=== PATIENT | male | born 1950 | race Caucasian/White ===

== ENCOUNTER 2022-12-17 13:54 | Inpatient (IN) ==
[2022-12-17] MEDS ORDERED: Pantoprazole 80 mg in NS BAG 80 MG/250 ML BAG IV ONE (14:05)
[2022-12-17] MEDS ORDERED: Pantoprazole VIAL 40 MG VIAL IV ONE (14:05)
[2022-12-17 14:28] LABS: INR 1.19 (0.88-1.18)
[2022-12-17 14:49] LABS: Hematocrit 33 % (42-52); Hemoglobin 11.1 g/dL (14.0-18.0); Mean Corpuscular HGB Conc 33 g/dL (31-36); Mean Corpuscular Hemoglobin 32 pg (27-31); Mean Corpuscular Volume 95 fL (80-94); Mean Platelet Volume 11.4 fL (7.4-10.4); Platelet Count 46 10^3/uL (150-450); Red Blood Count 3.51 10^6 /uL (4.18-5.48); Red Cell Distribution Width 15 % (10-15); White Blood Count 10.9 10^3/uL (3.5-10.8)
[2022-12-17] MEDS ORDERED: Lactated Ringers 1000 ml BAG 1,000 ML IV ONE ×2 (14:51→15:45)
[2022-12-17 15:15] LABS: Albumin 2.9 g/dL (3.2-5.2); Albumin/Globulin Ratio 1.3 (1-3); C Reactive Protein 321.91 mg/L (<8.01); Calcium 8.2 mg/dL (8.6-10.3); Creatinine, Serum 2.05 mg/dL (0.67-1.17); Globulin 2.3 g/dL (2-4); Potassium 3.3 mmol/L (3.5-5.0); Total Protein 5.2 g/dL (6.4-8.9); eGFR CKD-EPI 33.6 (>60)
[2022-12-17 15:40] LABS: RBC Morphology Normal (Normal)
[2022-12-17 15:41] LABS: ABS Lymphocytes 0.4 10^3/ul (1.0-4.8); ABS Monocytes 0.4 10^3/ul (0-0.8); Eosinophil % 0.4 %
[2022-12-17] MEDS ORDERED: Iodixanol (CONTRAST) 320 MG/ML 100 ML SDV IV ONE (16:00)
[2022-12-17] MEDS ORDERED: Lactated Ringers 1000 ml BAG 1,000 ML IV SCH ×2 (20:00→21:14)
[2022-12-17] MEDS ORDERED: DULoxetine DR 60 mg CAP PO ONE (21:04)
[2022-12-17] MEDS: KCL 20 MEQ/100 ML IVPREMIX 20 MEQ/100 ML BAG IV SCH (22:34)
[2022-12-17 23:02] LABS: Hematocrit 30 % (42-52); Hemoglobin 9.9 g/dL (14.0-18.0); Mean Corpuscular HGB Conc 33 g/dL (31-36); Mean Corpuscular Hemoglobin 31 pg (27-31); Mean Corpuscular Volume 92 fL (80-94); Mean Platelet Volume 10.9 fL (7.4-10.4); Platelet Count 47 10^3/uL (150-450); Red Blood Count 3.22 10^6 /uL (4.18-5.48); Red Cell Distribution Width 14 % (10-15); White Blood Count 9.2 10^3/uL (3.5-10.8)
[2022-12-17 23:38] LABS: Hepatitis B Surface Antigen Nonreactive (Nonreactive)
[2022-12-17 23:40] LABS: Activated Partial Thrombo Time 25.2 seconds (26.0-38.0)
[2022-12-17 23:43] LABS: Hepatitis A Ab IgM Negative (Negative)
[2022-12-17 23:44] LABS: Hepatitis B Core IgM Nonreactive (Nonreactive)
[2022-12-17 23:55] LABS: Hepatitis B Surface Ab Not Immune (Immune)
[2022-12-18 00:08] LABS: ABS Eosinophils 0.3 10^3/ul (0-0.6); ABS Lymphocytes 0.4 10^3/ul (1.0-4.8); ABS Monocytes 0.1 10^3/ul (0-0.8); ABS Neutrophils 8.3 10^3/ul (1.5-7.7); Eosinophil % 3.3 %; Lymphocyte % 4.3 %; Nucleated Red Blood Cells % 0.1
[2022-12-18] MEDS: KCL 20 MEQ/100 ML IVPREMIX 20 MEQ/100 ML BAG IV SCH ×4 (03:17→10:18)
[2022-12-18 03:38] LABS: Mean Platelet Volume 10.7 fL (7.4-10.4); Platelet Count 57 10^3/uL (150-450)
[2022-12-18 06:40] LABS: Hematocrit 30 % (42-52); Hemoglobin 10.3 g/dL (14.0-18.0); Mean Corpuscular HGB Conc 34 g/dL (31-36); Mean Corpuscular Hemoglobin 32 pg (27-31); Mean Corpuscular Volume 93 fL (80-94); Mean Platelet Volume 10.6 fL (7.4-10.4); Platelet Count 50 10^3/uL (150-450); Red Blood Count 3.23 10^6 /uL (4.18-5.48); Red Cell Distribution Width 15 % (10-15); White Blood Count 11.9 10^3/uL (3.5-10.8)
[2022-12-18 07:05] LABS: Albumin/Globulin Ratio 1.1 (1-3); Calcium 6.8 mg/dL (8.6-10.3); Creatinine, Serum 1.5 mg/dL (0.67-1.17); Globulin 1.9 g/dL (2-4); Potassium 3.4 mmol/L (3.5-5.0); Total Bilirubin 0.8 mg/dL (0.2-1.0); Total Protein 3.9 g/dL (6.4-8.9); eGFR CKD-EPI 48.9 (>60)
[2022-12-18 08:02] LABS: Hepatitis C Antibody Negative (Negative)
[2022-12-18] MEDS ORDERED: NS 0.9% 500 ml BAG 500 ML IV ONE (08:45)
[2022-12-18] MEDS ORDERED: Pantoprazole VIAL 40 MG VIAL IV SCH (09:00)
[2022-12-18] MEDS ORDERED: Lactated Ringers 1000 ml BAG 1,000 ML IV ONE (09:18)
[2022-12-18] MEDS: Pantoprazole 80 mg in NS BAG 80 MG/250 ML BAG IV SCH ×3 (10:27→22:10)
[2022-12-18] MEDS ORDERED: Buffered Lidocaine 1% SYRIN 1 ml INTRADERM ONE (14:14)
[2022-12-18] MEDS ORDERED: Naloxone 0.4 mg VIAL 0.4 mg/ml 1 ml VIAL IV PRN ×2 (15:05→18:34)
[2022-12-18] MEDS ORDERED: fentaNYL 100 mcg/2 ml 50 MCG/ML VIAL IV PRN (15:05)
[2022-12-18] MEDS ORDERED: Propofol 10 MG/ML 20 ML BTL ONE (15:16)
[2022-12-18 18:21] LABS: Hematocrit 35 % (42-52); Hemoglobin 11.5 g/dL (14.0-18.0)
[2022-12-18] MEDS: Lactated Ringers 1000 ml BAG 1,000 ML IV SCH (19:56)
[2022-12-18] MEDS ORDERED: cefTRIAXone 2 gm/50 mL D5W 2 GM/50 ML BAG IV SCH (21:00)
[2022-12-18] MEDS ORDERED: Metoprolol Tartrate 5 mg VIAL 5 ml VIAL (1 mg/ml) IV ONE (21:57)
[2022-12-18 23:51] LABS: Hematocrit 34 % (42-52); Hemoglobin 10.9 g/dL (14.0-18.0)
[2022-12-19] MEDS ORDERED: NS 0.9% 500 ml BAG 500 ML IV ONE (03:21)
[2022-12-19] MEDS: Lactated Ringers 1000 ml BAG 1,000 ML IV SCH (04:47)
[2022-12-19 06:52] LABS: Calcium 7.4 mg/dL (8.6-10.3); Creatinine, Serum 2.1 mg/dL (0.67-1.17); Magnesium 2.4 mg/dL (1.9-2.7); Potassium 4.6 mmol/L (3.5-5.0); eGFR CKD-EPI 32.6 (>60)
[2022-12-19 07:01] LABS: Hematocrit 31 % (42-52); Hemoglobin 10.7 g/dL (14.0-18.0); Mean Corpuscular HGB Conc 35 g/dL (31-36); Mean Corpuscular Hemoglobin 33 pg (27-31); Mean Corpuscular Volume 94 fL (80-94); Mean Platelet Volume 11.9 fL (7.4-10.4); Platelet Count 26 10^3/uL (150-450); Red Blood Count 3.28 10^6 /uL (4.18-5.48); Red Cell Distribution Width 15 % (10-15); White Blood Count 15.8 10^3/uL (3.5-10.8)
[2022-12-19] MEDS ORDERED: Lactated Ringers 1000 ml BAG 1,000 ML IV ONE ×2 (08:01→12:26)
[2022-12-19] MEDS ORDERED: Vancomycin per Pharmacy 1 EA NOTE FOLLOW UP PRN (08:52)
[2022-12-19] MEDS ORDERED: Cefepime 1 GM in Dextrose 1 GM/50 ML BAG IV SCH (09:00)
[2022-12-19] MEDS ORDERED: Iodixanol (CONTRAST) 320 MG/ML 100 ML SDV IV ONE (09:01)
[2022-12-19] MEDS ORDERED: metroNIDAZOLE IV 500 MG/100ML 500 MG/100 ML BAG IVPB SCH (09:30)
[2022-12-19] MEDS ORDERED: Albuterol/Ipratropium NEB.SOL (2.5/0.5 MG) 3 ML NEB.SOLN INH SCH (10:00)
[2022-12-19] MEDS ORDERED: Norepinephrine 16MCG/ML BAGD5W 4,000 MCG/250 ML BAG IV SCH (10:00)
[2022-12-19] MEDS ORDERED: PHENYLEPHRINE DRIP IVPREMIX 50 MG/250 ML BAG IV SCH (10:00)
[2022-12-19 10:07] LABS: Toxic Granulation 2+
[2022-12-19 10:08] LABS: RBC Morphology Normal (Normal)
[2022-12-19] MEDS: Pantoprazole 80 mg in NS BAG 80 MG/250 ML BAG IV SCH ×2 (10:11→16:44)
[2022-12-19 10:14] LABS: Platelet Morphology Large
[2022-12-19 10:16] LABS: ABS Eosinophils 0.1 10^3/ul (0-0.6); ABS Lymphocytes 0.4 10^3/ul (1.0-4.8); ABS Monocytes 0.2 10^3/ul (0-0.8); ABS Neutrophils 15.1 10^3/ul (1.5-7.7); Eosinophil % 0.7 %; Lymphocyte % 2.2 %; Nucleated Red Blood Cells % 0.2
[2022-12-19] MEDS ORDERED: Vancomycin 1,000 MG in NS 0.9% 250 ml 250 ML IVPB ONE (10:30)
[2022-12-19 10:32] LABS: INR 1.63 (0.88-1.18)
[2022-12-19] MEDS: Norepinephrine 16MCG/ML BAGD5W 4,000 MCG/250 ML BAG IV SCH ×2 (10:51→16:59)
[2022-12-19 12:22] LABS: Urine Appearance Cloudy; Urine Bilirubin Negative (Negative); Urine Blood 2+ (Negative); Urine Color Amber; Urine Glucose Negative (Negative); Urine Ketones Negative (Negative); Urine Nitrite Negative (Negative); Urine Protein Negative (Negative); Urine Specific Gravity 1.015 (1.002-1.030); Urine Urobilinogen Negative (Negative)
[2022-12-19] MEDS ORDERED: Morphine ORAL.SOLN 10 mg 2 mg/ml UDC 5 ml (10 mg) PO PRN (12:28)
[2022-12-19 12:46] LABS: Urine Bacteria Absent (Absent); Urine Red Blood Cell 1+(3-5/hpf) (Absent); Urine White Blood Cell 1+(6-10/hpf) (Absent)
[2022-12-19] MEDS ORDERED: Albuterol/Ipratropium NEB.SOL (2.5/0.5 MG) 3 ML NEB.SOLN INH PRN (13:16)
[2022-12-19 13:18] LABS: PCO2 Arterial 26 mmHg (35-45)
[2022-12-19 13:35] LABS: Hematocrit 28 % (42-52); Hemoglobin 9.3 g/dL (14.0-18.0); Mean Corpuscular HGB Conc 33 g/dL (31-36); Mean Corpuscular Hemoglobin 31 pg (27-31); Mean Corpuscular Volume 93 fL (80-94); Mean Platelet Volume 11.1 fL (7.4-10.4); Mean Platelet Volume 11.7 fL (7.4-10.4); Platelet Count 35 10^3/uL (150-450); Platelet Count 37 10^3/uL (150-450); Red Blood Count 3.01 10^6 /uL (4.18-5.48); Red Cell Distribution Width 15 % (10-15); White Blood Count 20.3 10^3/uL (3.5-10.8)
[2022-12-19 14:00] LABS: High Sensitivity Troponin 1 Hr 783 pg/mL (<20)
[2022-12-19] MEDS ORDERED: Heparin DRIP 25,000 UNITS BAG 25,000 UNITS/500 ML BAG IV SCH (14:00)
[2022-12-19 14:31] LABS: Creatinine, Serum 2.13 mg/dL (0.67-1.17); Potassium 4.1 mmol/L (3.5-5.0)
[2022-12-19 14:32] LABS: Calcium 7.2 mg/dL (8.6-10.3); eGFR CKD-EPI 32.1 (>60)
[2022-12-19] MEDS ORDERED: Heparin 5000 UNITS/ML 1 mL VIAL IV SCH (15:00)
[2022-12-19 18:30] LABS: Body Fluid Appearance Cloudy; Body Fluid Color Yellow; Body Fluid Source Synovial Fluid
[2022-12-19 19:33] LABS: Body Fluid WBC 209274 /mcL
[2022-12-19] MEDS ORDERED: Lidocaine 1% w EPI 1:200,000 SDV 30 ML VIAL ONE (20:25)
[2022-12-19] MEDS ORDERED: Midazolam 5 mg/5 ml VIAL 1 mg/ml 5 ml VIAL (5 mg) ONE (20:50)
[2022-12-19] MEDS ORDERED: fentaNYL 100 mcg/2 ml 50 MCG/ML VIAL ONE (20:50)
[2022-12-19 21:45] LABS: Body Fluid Mono 14 %; Body Fluid Other Cells 14; Body Fluid Total Cells Counted 200
[2022-12-19 22:57] LABS: PCO2 Arterial 26 mmHg (35-45); PO2 Arterial 77 mmHg (80-100)
[2022-12-19 23:13] LABS: ABS Lymphocytes 0.6 10^3/ul (1.0-4.8); ABS Monocytes 0.2 10^3/ul (0-0.8); Eosinophil % 0.2 %; Hematocrit 25 % (42-52); Hemoglobin 8.1 g/dL (14.0-18.0); Lymphocyte % 4.2 %; Mean Corpuscular HGB Conc 33 g/dL (31-36); Mean Corpuscular Hemoglobin 30 pg (27-31); Mean Corpuscular Volume 93 fL (80-94); Mean Platelet Volume 11.5 fL (7.4-10.4); Nucleated Red Blood Cells % 0.1; Platelet Count 31 10^3/uL (150-450); Red Blood Count 2.66 10^6 /uL (4.18-5.48); Red Cell Distribution Width 15 % (10-15); White Blood Count 14.9 10^3/uL (3.5-10.8)
[2022-12-19 23:53] LABS: Calcium 6.8 mg/dL (8.6-10.3); Creatinine, Serum 1.99 mg/dL (0.67-1.17); Potassium 4.1 mmol/L (3.5-5.0); eGFR CKD-EPI 34.8 (>60)
[2022-12-19] MEDS: ceFAZolin 2 GM in NS PREMIX 2 GM/100 ML BAG IVPB SCH (23:54)
[2022-12-20] MEDS: Pantoprazole 80 mg in NS BAG 80 MG/250 ML BAG IV SCH ×2 (01:16→12:56)
[2022-12-20] MEDS: Norepinephrine 16MCG/ML BAGD5W 4,000 MCG/250 ML BAG IV SCH ×2 (01:23→09:51)
[2022-12-20 03:16] LABS: Urine Appearance Cloudy; Urine Bilirubin Negative (Negative); Urine Blood 1+ (Negative); Urine Color Yellow; Urine Glucose Negative (Negative); Urine Ketones Negative (Negative); Urine Nitrite Negative (Negative); Urine Protein Negative (Negative); Urine Urobilinogen Negative (Negative)
[2022-12-20 03:29] LABS: Urine Bacteria Absent (Absent); Urine Granular Casts Present (Absent); Urine Red Blood Cell 2+(6-10/hpf) (Absent); Urine Squamous Epithelial Cell Present (Absent); Urine White Blood Cell Trace(0-5/hpf) (Absent)
[2022-12-20 06:28] LABS: Hematocrit 23 % (42-52); Hemoglobin 7.6 g/dL (14.0-18.0); Mean Corpuscular HGB Conc 33 g/dL (31-36); Mean Corpuscular Hemoglobin 30 pg (27-31); Mean Corpuscular Volume 93 fL (80-94); Mean Platelet Volume 11.8 fL (7.4-10.4); Platelet Count 35 10^3/uL (150-450); Red Blood Count 2.52 10^6 /uL (4.18-5.48); Red Cell Distribution Width 15 % (10-15); White Blood Count 16.5 10^3/uL (3.5-10.8)
[2022-12-20 07:06] LABS: Albumin 1.7 g/dL (3.2-5.2); Magnesium 2.4 mg/dL (1.9-2.7)
[2022-12-20 07:09] LABS: Calcium 6.9 mg/dL (8.6-10.3); Potassium 4.2 mmol/L (3.5-5.0)
[2022-12-20 07:12] LABS: Albumin/Globulin Ratio 0.9 (1-3); Creatinine, Serum 2.22 mg/dL (0.67-1.17); Globulin 1.9 g/dL (2-4); Total Protein 3.6 g/dL (6.4-8.9); eGFR CKD-EPI 30.5 (>60)
[2022-12-20 08:11] LABS: INR 1.83 (0.88-1.18)
[2022-12-20] MEDS: DULoxetine DR 60 mg CAP PO SCH (09:13)
[2022-12-20 11:54] LABS: PCO2 Arterial 23 mmHg (35-45); PO2 Arterial 119 mmHg (80-100)
[2022-12-20] MEDS: ceFAZolin 2 GM in NS PREMIX 2 GM/100 ML BAG IVPB SCH ×2 (12:00→23:13)
[2022-12-20] MEDS ORDERED: Morphine 10 MG/ML VIAL (1 ml) IV PRN (12:06)
[2022-12-20] MEDS: Acetaminophen IV 1 GM/100ML 1,000 MG/100 ML BAG IV PRN (12:43)
[2022-12-20] MEDS: PHENYLEPHRINE IV SCH ×2 (12:59→22:13)
[2022-12-20] MEDS: NS 0.9% IV SCH ×2 (12:59→22:13)
[2022-12-20] MEDS ORDERED: PHENYLEPHRINE DRIP IVPREMIX 50 MG/250 ML BAG IV SCH ×2 (13:00→15:00)
[2022-12-20 14:39] LABS: INR 2.05 (0.88-1.18)
[2022-12-20 14:54] LABS: Creatinine, Serum 2.42 mg/dL (0.67-1.17); Potassium 4.2 mmol/L (3.5-5.0); eGFR CKD-EPI 27.5 (>60)
[2022-12-20 14:56] LABS: Hematocrit 24 % (42-52); Hemoglobin 7.8 g/dL (14.0-18.0); Mean Corpuscular HGB Conc 32 g/dL (31-36); Mean Corpuscular Hemoglobin 29 pg (27-31); Mean Corpuscular Volume 91 fL (80-94); Mean Platelet Volume 10.1 fL (7.4-10.4); Platelet Count 34 10^3/uL (150-450); Red Blood Count 2.66 10^6 /uL (4.18-5.48); Red Cell Distribution Width 15 % (10-15)
[2022-12-20 15:03] LABS: Calcium 6.4 mg/dL (8.6-10.3)
[2022-12-20] MEDS: fentaNYL 100 mcg/2 ml 50 MCG/ML VIAL IV SLOW PU PRN (16:48)
[2022-12-20] MEDS ORDERED: Calcium Gluconate 2 GM in NS 0.9% 100 ml BAG 100 ML IV ONE (19:30)
[2022-12-20 23:16] LABS: Hematocrit 23 % (42-52); Hemoglobin 7.4 g/dL (14.0-18.0); Mean Corpuscular HGB Conc 33 g/dL (31-36); Mean Corpuscular Hemoglobin 30 pg (27-31); Mean Corpuscular Volume 92 fL (80-94); Mean Platelet Volume 11.6 fL (7.4-10.4); Platelet Count 38 10^3/uL (150-450); Red Blood Count 2.47 10^6 /uL (4.18-5.48); Red Cell Distribution Width 15 % (10-15)
[2022-12-20 23:21] LABS: INR 1.78 (0.88-1.18)
[2022-12-21] MEDS: fentaNYL 100 mcg/2 ml 50 MCG/ML VIAL IV SLOW PU PRN (00:04)
[2022-12-21] MEDS: Acetaminophen IV 1 GM/100ML 1,000 MG/100 ML BAG IV PRN ×2 (01:03→12:24)
[2022-12-21] MEDS: Pantoprazole 80 mg in NS BAG 80 MG/250 ML BAG IV SCH ×3 (01:33→23:27)
[2022-12-21] MEDS ORDERED: Rocuronium 50 mg VIAL 10 mg/ml 5 ml VIAL (50 mg) ONE ×3 (03:12→03:35)
[2022-12-21] MEDS ORDERED: Succinylcholine 200 mg VIAL 20 mg/ml 10 ml VIAL (200 mg) ONE (03:12)
[2022-12-21] MEDS ORDERED: Propofol 10 mg/ml 100 ML BTL 1,000 MG/100 ML BTL ONE (03:23)
[2022-12-21] MEDS ORDERED: Etomidate 40 mg/20 ml (2 MG/ML) 20 ml VIAL (40 mg) ONE (03:35)
[2022-12-21] MEDS: Propofol 10 mg/ml 100 ML BTL 1,000 MG/100 ML BTL IV SCH ×3 (04:00→19:00)
[2022-12-21 04:30] LABS: PCO2 Arterial 43 mmHg (35-45); PO2 Arterial 83 mmHg (80-100)
[2022-12-21] MEDS: Chlorhexidine MOUTHWASH 0.12% 15 ML UDC SWISH SPIT SCH ×5 (05:06→20:06)
[2022-12-21 06:08] LABS: PCO2 Arterial 43 mmHg (35-45); PO2 Arterial 71 mmHg (80-100)
[2022-12-21] MEDS: PHENYLEPHRINE IV SCH ×2 (06:23→14:27)
[2022-12-21] MEDS: NS 0.9% IV SCH ×2 (06:23→14:27)
[2022-12-21 06:39] LABS: Hematocrit 32 % (42-52); Hemoglobin 10.6 g/dL (14.0-18.0); Mean Corpuscular HGB Conc 33 g/dL (31-36); Mean Corpuscular Hemoglobin 30 pg (27-31); Mean Corpuscular Volume 92 fL (80-94); Mean Platelet Volume 10.7 fL (7.4-10.4); Platelet Count 57 10^3/uL (150-450); Red Cell Distribution Width 15 % (10-15); White Blood Count 20.5 10^3/uL (3.5-10.8)
[2022-12-21 06:41] LABS: INR 1.57 (0.88-1.18)
[2022-12-21 07:46] LABS: Burr Cells 2+
[2022-12-21 07:49] LABS: ABS Lymphocytes 4.1 10^3/ul (1.0-4.8); ABS Neutrophils 15.8 10^3/ul (1.5-7.7); Anisocytosis 1+
[2022-12-21 07:50] LABS: ABS Eosinophils 0.2 10^3/ul (0-0.6)
[2022-12-21 07:53] LABS: Albumin 1.8 g/dL (3.2-5.2); Calcium 7.1 mg/dL (8.6-10.3); Magnesium 2.8 mg/dL (1.9-2.7); Potassium 4.5 mmol/L (3.5-5.0); Total Bilirubin 1.4 mg/dL (0.2-1.0)
[2022-12-21 07:59] LABS: Albumin/Globulin Ratio 0.8 (1-3); Creatinine, Serum 2.79 mg/dL (0.67-1.17); Globulin 2.2 g/dL (2-4); eGFR CKD-EPI 23.2 (>60)
[2022-12-21] MEDS ORDERED: Lidocaine 2% JELLY 6 ML Topical TOPICAL ONE (08:43)
[2022-12-21] MEDS ORDERED: Naloxone 0.4 mg VIAL 0.4 mg/ml 1 ml VIAL IV PUSH PRN (08:43)
[2022-12-21] MEDS ORDERED: Midazolam 10 mg/10 ml VIAL 1 mg/ml 10 ml VIAL (10 mg) IV SLOW PU ONE (08:43)
[2022-12-21] MEDS ORDERED: Flumazenil 0.5 mg/5 ml 0.1 MG/ML 5 ml VIAL IV PRN (08:43)
[2022-12-21] MEDS ORDERED: Lactated Ringers 1000 ml BAG 1,000 ML IV ONE (08:43)
[2022-12-21] MEDS ORDERED: Ondansetron 4 mg VIAL 2 MG/ML 2 ml VIAL IV ONE (08:43)
[2022-12-21] MEDS ORDERED: fentaNYL 100 mcg/2 ml 50 MCG/ML VIAL IV SLOW PU ONE (08:43)
[2022-12-21] MEDS: DULoxetine DR 60 mg CAP PO SCH (08:54)
[2022-12-21] MEDS ORDERED: Midazolam 10 mg/10 ml VIAL 1 mg/ml 10 ml VIAL (10 mg) ONE (09:57)
[2022-12-21] MEDS ORDERED: fentaNYL 100 mcg/2 ml 50 MCG/ML VIAL ONE (09:57)
[2022-12-21] MEDS ORDERED: D5W 1000 ml BAG 1,000 ML IV SCH ×2 (10:00→14:26)
[2022-12-21 10:05] LABS: C Reactive Protein 346.7 mg/L (<8.01)
[2022-12-21] MEDS ORDERED: Sulfur Hexaflouride MICROSPHR 25 MG VIAL ONE (10:24)
[2022-12-21 11:51] LABS: Hematocrit 31 % (42-52); Hemoglobin 10.1 g/dL (14.0-18.0); Mean Corpuscular HGB Conc 33 g/dL (31-36); Mean Corpuscular Hemoglobin 29 pg (27-31); Mean Corpuscular Volume 90 fL (80-94); Platelet Count 41 10^3/uL (150-450); Red Blood Count 3.46 10^6 /uL (4.18-5.48); Red Cell Distribution Width 16 % (10-15); White Blood Count 17.1 10^3/uL (3.5-10.8)
[2022-12-21] MEDS: ceFAZolin 2 GM in NS PREMIX 2 GM/100 ML BAG IVPB SCH (12:24)
[2022-12-21 12:30] LABS: Albumin 1.8 g/dL (3.2-5.2); Albumin/Globulin Ratio 0.9 (1-3); Creatinine, Serum 2.87 mg/dL (0.67-1.17); Potassium 4.5 mmol/L (3.5-5.0); Total Bilirubin 1.1 mg/dL (0.2-1.0); Total Protein 3.8 g/dL (6.4-8.9); eGFR CKD-EPI 22.4 (>60)
[2022-12-21 12:53] LABS: ABS Lymphocytes 1.9 10^3/ul (1.0-4.8); ABS Monocytes 0.6 10^3/ul (0-0.8); ABS Neutrophils 14.7 10^3/ul (1.5-7.7); Eosinophil % 0.1 %; Nucleated Red Blood Cells % 0.1
[2022-12-21 12:56] LABS: Anisocytosis 1+
[2022-12-21 12:57] LABS: Burr Cells 2+
[2022-12-21 17:52] LABS: Hematocrit 28 % (42-52); Hemoglobin 9.8 g/dL (14.0-18.0); Mean Corpuscular HGB Conc 35 g/dL (31-36); Mean Corpuscular Hemoglobin 32 pg (27-31); Mean Corpuscular Volume 91 fL (80-94); Mean Platelet Volume 11.1 fL (7.4-10.4); Platelet Count 37 10^3/uL (150-450); Red Blood Count 3.09 10^6 /uL (4.18-5.48); Red Cell Distribution Width 16 % (10-15); White Blood Count 12.4 10^3/uL (3.5-10.8)
[2022-12-21 18:21] LABS: Calcium 6.7 mg/dL (8.6-10.3); Creatinine, Serum 2.64 mg/dL (0.67-1.17); Potassium 3.9 mmol/L (3.5-5.0); eGFR CKD-EPI 24.8 (>60)
[2022-12-21 18:54] LABS: Anisocytosis 1+; Burr Cells 2+; Toxic Granulation 1+
[2022-12-21 18:55] LABS: Acanthocytes 2+
[2022-12-21 18:58] LABS: Smudge Cells Present
[2022-12-21] MEDS: D5W 1000 ml BAG 1,000 ML IV SCH (19:31)
[2022-12-21 20:02] LABS: ABS Eosinophils 0.1 10^3/ul (0-0.6); ABS Lymphocytes 1.5 10^3/ul (1.0-4.8); ABS Monocytes 0.1 10^3/ul (0-0.8); ABS Neutrophils 10.7 10^3/ul (1.5-7.7); Eosinophil % 0.5 %; Lymphocyte % 12.4 %; Nucleated Red Blood Cells % 0.1
[2022-12-22] MEDS: PHENYLEPHRINE IV SCH (00:15)
[2022-12-22] MEDS: NS 0.9% IV SCH (00:15)
[2022-12-22 00:56] LABS: Hematocrit 32 % (42-52); Hemoglobin 10.6 g/dL (14.0-18.0); Mean Corpuscular HGB Conc 33 g/dL (31-36); Mean Corpuscular Hemoglobin 30 pg (27-31); Mean Corpuscular Volume 91 fL (80-94); Platelet Count 38 10^3/uL (150-450); Red Blood Count 3.49 10^6 /uL (4.18-5.48); Red Cell Distribution Width 16 % (10-15)
[2022-12-22] MEDS: Propofol 10 mg/ml 100 ML BTL 1,000 MG/100 ML BTL IV SCH ×4 (01:19→17:33)
[2022-12-22] MEDS: ceFAZolin 2 GM in NS PREMIX 2 GM/100 ML BAG IVPB SCH ×3 (01:21→21:39)
[2022-12-22] MEDS: Chlorhexidine MOUTHWASH 0.12% 15 ML UDC SWISH SPIT SCH ×6 (01:23→21:13)
[2022-12-22 01:27] LABS: Blood Urea Nitrogen 125 mg/dL (6-24); CO2 Carbon Dioxide 20 mmol/L (22-32); Calcium 6.7 mg/dL (8.6-10.3); Creatinine, Serum 2.57 mg/dL (0.67-1.17); Glucose 145 mg/dL (70-100); Sodium 143 mmol/L (135-145); eGFR CKD-EPI 25.6 (>60)
[2022-12-22 01:38] LABS: Anion Gap 7 mmol/L (2-11); Chloride 116 mmol/L (101-111)
[2022-12-22 02:11] LABS: Burr Cells 3+
[2022-12-22 02:12] LABS: Anisocytosis 2+
[2022-12-22 02:13] LABS: Acanthocytes 1+; Toxic Granulation 3+
[2022-12-22 02:15] LABS: Smudge Cells Present
[2022-12-22 02:20] LABS: White Blood Count 14.2 10^3/uL (3.5-10.8)
[2022-12-22 02:21] LABS: ABS Eosinophils 0.2 10^3/ul (0-0.6); ABS Lymphocytes 2.1 10^3/ul (1.0-4.8); ABS Monocytes 0.3 10^3/ul (0-0.8); ABS Neutrophils 13.2 10^3/ul (1.5-7.7); ABS Nucleated RBC 0.1 10^3/ul; Lymphocyte % 13.4 %; Nucleated Red Blood Cells % 0.4
[2022-12-22 04:34] LABS: Hematocrit 31 % (42-52); Hemoglobin 10.1 g/dL (14.0-18.0); Mean Corpuscular HGB Conc 32 g/dL (31-36); Mean Corpuscular Hemoglobin 30 pg (27-31); Mean Corpuscular Volume 92 fL (80-94); Mean Platelet Volume 10.7 fL (7.4-10.4); Platelet Count 36 10^3/uL (150-450); Red Cell Distribution Width 16 % (10-15)
[2022-12-22] MEDS: D5W 1000 ml BAG 1,000 ML IV SCH ×2 (04:58→21:03)
[2022-12-22 05:06] LABS: INR 1.47 (0.88-1.18)
[2022-12-22 05:10] LABS: Albumin 1.8 g/dL (3.2-5.2); Albumin/Globulin Ratio 0.9 (1-3); Calcium 6.9 mg/dL (8.6-10.3); Creatinine, Serum 2.78 mg/dL (0.67-1.17); Potassium 4.8 mmol/L (3.5-5.0); Total Bilirubin 0.6 mg/dL (0.2-1.0); Total Protein 3.8 g/dL (6.4-8.9); eGFR CKD-EPI 23.3 (>60)
[2022-12-22 06:50] LABS: Acanthocytes 1+; Anisocytosis 1+; Burr Cells 3+; Toxic Granulation 3+
[2022-12-22 06:51] LABS: ABS Eosinophils 0.1 10^3/ul (0-0.6); ABS Lymphocytes 1.6 10^3/ul (1.0-4.8); ABS Monocytes 0.2 10^3/ul (0-0.8); ABS Neutrophils 13.8 10^3/ul (1.5-7.7); Eosinophil % 0.5 %; Lymphocyte % 10.1 %; Nucleated Red Blood Cells % 0.2; White Blood Count 15.6 10^3/uL (3.5-10.8)
[2022-12-22 06:52] LABS: Smudge Cells Present
[2022-12-22] MEDS: DULoxetine DR 60 mg CAP PO SCH (08:44)
[2022-12-22 09:50] LABS: PCO2 Arterial 36 mmHg (35-45); PO2 Arterial 102 mmHg (80-100)
[2022-12-22] MEDS: Pantoprazole 80 mg in NS BAG 80 MG/250 ML BAG IV SCH ×3 (10:15→21:53)
[2022-12-22] MEDS ORDERED: Vancomycin 1,000 MG in NS 0.9% 250 ml 250 ML IVPB ONE (12:14)
[2022-12-22 12:37] LABS: Hematocrit 28 % (42-52); Hemoglobin 9.6 g/dL (14.0-18.0); Mean Corpuscular HGB Conc 34 g/dL (31-36); Mean Corpuscular Hemoglobin 31 pg (27-31); Mean Corpuscular Volume 91 fL (80-94); Red Blood Count 3.11 10^6 /uL (4.18-5.48); Red Cell Distribution Width 16 % (10-15); White Blood Count 14.5 10^3/uL (3.5-10.8)
[2022-12-22 12:54] LABS: Body Fluid WBC 13099 /mcL
[2022-12-22] MEDS ORDERED: Vancomycin per Pharmacy 1 EA NOTE FOLLOW UP PRN (13:01)
[2022-12-22 13:43] LABS: Body Fluid Mono 2 %; Body Fluid Total Cells Counted 200
[2022-12-22 13:44] LABS: Body Fluid Appearance Cloudy; Body Fluid Color Colorless; Body Fluid Source Synovial Fluid
[2022-12-22 13:59] LABS: Anisocytosis 1+; Toxic Granulation 2+
[2022-12-22 14:01] LABS: ABS Eosinophils 0.1 10^3/ul (0-0.6); ABS Lymphocytes 1.3 10^3/ul (1.0-4.8); ABS Monocytes 0.2 10^3/ul (0-0.8); ABS Neutrophils 12.9 10^3/ul (1.5-7.7); Eosinophil % 0.5 %; Lymphocyte % 8.8 %; Mean Platelet Volume 11.7 fL (7.4-10.4); Nucleated Red Blood Cells % 0.3; Platelet Count 30 10^3/uL (150-450)
[2022-12-22] MEDS: Phenylephrine IV 50 MG in NS 0.9% 250 ml 245 ML IV SCH (14:07)
[2022-12-22] MEDS ORDERED: Propofol 10 MG/ML 20 ML BTL ONE (16:56)
[2022-12-22] MEDS: fentaNYL 100 mcg/2 ml 50 MCG/ML VIAL IV SLOW PU PRN (17:33)
[2022-12-22 19:06] LABS: Body Fluid Source Synovial Fluid
[2022-12-22 19:07] LABS: Body Fluid Appearance Cloudy; Body Fluid Color Red
[2022-12-22 19:50] LABS: Body Fluid WBC 589 /mcL
[2022-12-22 20:37] LABS: Body Fluid Mono 20 %; Body Fluid Total Cells Counted 200
[2022-12-22 20:40] LABS: Hematocrit 28 % (42-52); Hemoglobin 9.1 g/dL (14.0-18.0); Mean Corpuscular HGB Conc 32 g/dL (31-36); Mean Corpuscular Hemoglobin 30 pg (27-31); Mean Corpuscular Volume 92 fL (80-94); Mean Platelet Volume 10.2 fL (7.4-10.4); Platelet Count 29 10^3/uL (150-450); Red Blood Count 3.06 10^6 /uL (4.18-5.48); Red Cell Distribution Width 16 % (10-15); White Blood Count 17.2 10^3/uL (3.5-10.8)
[2022-12-23] MEDS: fentaNYL 100 mcg/2 ml 50 MCG/ML VIAL IV SLOW PU PRN (00:12)
[2022-12-23] MEDS: Phenylephrine IV 50 MG in NS 0.9% 250 ml 245 ML IV SCH ×7 (00:27→23:11)
[2022-12-23] MEDS: Pantoprazole 80 mg in NS BAG 80 MG/250 ML BAG IV SCH ×3 (01:11→18:12)
[2022-12-23] MEDS: fentaNYL INFUSION 50 mcg/mL VL 2,500 MCG/50 ML VIAL IV SCH (02:55)
[2022-12-23 03:06] LABS: Hematocrit 25 % (42-52); Hemoglobin 8.1 g/dL (14.0-18.0); Mean Corpuscular HGB Conc 33 g/dL (31-36); Mean Corpuscular Hemoglobin 30 pg (27-31); Mean Corpuscular Volume 92 fL (80-94); Mean Platelet Volume 12.4 fL (7.4-10.4); Platelet Count 38 10^3/uL (150-450); Red Blood Count 2.68 10^6 /uL (4.18-5.48); Red Cell Distribution Width 16 % (10-15); White Blood Count 18.5 10^3/uL (3.5-10.8)
[2022-12-23] MEDS: Chlorhexidine MOUTHWASH 0.12% 15 ML UDC SWISH SPIT SCH ×6 (03:07→21:43)
[2022-12-23 03:11] LABS: ALT 10 U/L (7-52); AST 89 U/L (13-39); Alkaline Phosphatase 174 U/L (35-149); Blood Urea Nitrogen 113 mg/dL (6-24); CO2 Carbon Dioxide 21 mmol/L (22-32); Creatinine, Serum 2.31 mg/dL (0.67-1.17); Glucose 120 mg/dL (70-100); Magnesium 2.7 mg/dL (1.9-2.7); Potassium 4.2 mmol/L (3.5-5.0); Total Protein 3.6 g/dL (6.4-8.9); Vancomycin Random 9.6 mcg/mL; eGFR CKD-EPI 29.1 (>60)
[2022-12-23 03:16] LABS: Albumin < 1.7 g/dL (3.2-5.2); Albumin/Globulin Ratio 0.9 (1-3); Anion Gap 7 mmol/L (2-11); Calcium 6.3 mg/dL (8.6-10.3); Chloride 118 mmol/L (101-111); Globulin 1.9 g/dL (2-4); Sodium 146 mmol/L (135-145)
[2022-12-23 03:31] LABS: Anisocytosis 1+; Toxic Granulation 2+
[2022-12-23 03:32] LABS: ABS Lymphocytes 1.5 10^3/ul (1.0-4.8); ABS Monocytes 0.4 10^3/ul (0-0.8); ABS Neutrophils 16.5 10^3/ul (1.5-7.7); ABS Nucleated RBC 0.1 10^3/ul; Burr Cells 1+; Eosinophil % 0.2 %; Lymphocyte % 8.3 %; Nucleated Red Blood Cells % 0.4; Polychromasia 1+
[2022-12-23] MEDS ORDERED: D5W 500 ml BAG 500 ML IV ONE (03:36)
[2022-12-23] MEDS ORDERED: Norepinephrine 16MCG/ML BAGD5W 4,000 MCG/250 ML BAG IV ONE (04:53)
[2022-12-23] MEDS: Norepinephrine 16MCG/ML BAGD5W 4,000 MCG/250 ML BAG IV SCH ×5 (05:00→21:38)
[2022-12-23] MEDS: Propofol 10 mg/ml 100 ML BTL 1,000 MG/100 ML BTL IV SCH ×3 (05:19→18:11)
[2022-12-23 05:24] LABS: PCO2 Arterial 37 mmHg (35-45); PO2 Arterial 122 mmHg (80-100)
[2022-12-23] MEDS ORDERED: Vancomycin Random Level NOTE FOLLOW UP ONE (06:00)
[2022-12-23 08:33] LABS: Hematocrit 24 % (42-52); Hemoglobin 7.9 g/dL (14.0-18.0); Mean Corpuscular HGB Conc 33 g/dL (31-36); Mean Corpuscular Hemoglobin 30 pg (27-31); Mean Corpuscular Volume 91 fL (80-94); Mean Platelet Volume 11.6 fL (7.4-10.4); Platelet Count 40 10^3/uL (150-450); Red Blood Count 2.63 10^6 /uL (4.18-5.48); Red Cell Distribution Width 16 % (10-15); White Blood Count 20.5 10^3/uL (3.5-10.8)
[2022-12-23 08:38] LABS: INR 1.34 (0.88-1.18)
[2022-12-23 08:57] LABS: Anisocytosis 1+; Toxic Granulation 2+
[2022-12-23] MEDS ORDERED: Vancomycin 1,250 MG IV x ONCE IVPB ONE (09:00)
[2022-12-23 09:17] LABS: ABS Eosinophils 0.1 10^3/ul (0-0.6); ABS Lymphocytes 1.8 10^3/ul (1.0-4.8); ABS Monocytes 0.5 10^3/ul (0-0.8); ABS Neutrophils 18.2 10^3/ul (1.5-7.7); ABS Nucleated RBC 0.1 10^3/ul; Eosinophil % 0.3 %; Lymphocyte % 8.7 %; Nucleated Red Blood Cells % 0.4
[2022-12-23] MEDS ORDERED: Calcium Gluconate 2 GM in NS 0.9% 100 ml BAG 100 ML IV ONE (09:30)
[2022-12-23] MEDS ORDERED: Lactated Ringers 1000 ml BAG 1,000 ML IV ONE (09:31)
[2022-12-23] MEDS: ceFAZolin 2 GM in NS PREMIX 2 GM/100 ML BAG IVPB SCH (10:04)
[2022-12-23] MEDS ORDERED: Albumin Human 25% 25 GM/100 ML IV ONE (11:15)
[2022-12-23] MEDS ORDERED: EPINEPHrine SYR 0.1MG/ML 10 ml SYRINGE IV ONE (12:35)
[2022-12-23] MEDS ORDERED: Sterile Water for Inj 10 ML ONE (12:36)
[2022-12-23] MEDS ORDERED: Sterile Water for Inj 20 ML ONE (12:38)
[2022-12-23] MEDS ORDERED: Propofol 10 MG/ML 20 ML BTL ONE (12:50)
[2022-12-23] MEDS: Albumin Human 25% 25 GM/100 ML BTL IV SCH ×5 (13:31→22:06)
[2022-12-23] MEDS ORDERED: ceFAZolin VIAL VIAL ONE (13:44)
[2022-12-23] MEDS ORDERED: Rocuronium 50 mg VIAL 10 mg/ml 5 ml VIAL (50 mg) ONE ×2 (14:04)
[2022-12-23] MEDS ORDERED: Sevoflurane BOTTLE ONE (14:05)
[2022-12-23] MEDS ORDERED: fentaNYL 100 mcg/2 ml 50 MCG/ML VIAL ONE (15:33)
[2022-12-23] MEDS ORDERED: Midazolam 2 mg/2 ml VIAL 1 mg/ml 2 ml VIAL (2 mg) ONE (15:40)
[2022-12-23] MEDS ORDERED: Phenylephrine IV 10 MG/ML 1 ml VIAL ONE (15:45)
[2022-12-23] MEDS ORDERED: Levalbuterol HFA INHALER MDI ONE (16:19)
[2022-12-23 18:47] LABS: Hematocrit 27 % (42-52); Hemoglobin 8.7 g/dL (14.0-18.0); Mean Corpuscular HGB Conc 33 g/dL (31-36); Mean Corpuscular Hemoglobin 30 pg (27-31); Mean Corpuscular Volume 91 fL (80-94); Mean Platelet Volume 10.3 fL (7.4-10.4); Platelet Count 51 10^3/uL (150-450); Red Blood Count 2.92 10^6 /uL (4.18-5.48); Red Cell Distribution Width 16 % (10-15)
[2022-12-23 18:48] LABS: Platelet Count 49 10^3/uL (150-450)
[2022-12-23 19:14] LABS: Calcium 6.9 mg/dL (8.6-10.3); eGFR CKD-EPI 34.6 (>60)
[2022-12-23 19:28] LABS: Anisocytosis 1+
[2022-12-23 19:29] LABS: Burr Cells 1+; Polychromasia 1+; Toxic Granulation 2+
[2022-12-23 19:30] LABS: ABS Eosinophils 0.1 10^3/ul (0-0.6); ABS Lymphocytes 1.2 10^3/ul (1.0-4.8); ABS Monocytes 0.1 10^3/ul (0-0.8); ABS Neutrophils 19.6 10^3/ul (1.5-7.7); ABS Nucleated RBC 0.1 10^3/ul; Dohle Bodies Present; Eosinophil % 0.3 %; Lymphocyte % 5.8 %; Nucleated Red Blood Cells % 0.3
[2022-12-23 21:38] LABS: PO2 Arterial 104 mmHg (80-100)
[2022-12-23 21:41] LABS: PCO2 Arterial 73 mmHg (35-45)
[2022-12-23 23:17] LABS: PCO2 Arterial 47 mmHg (35-45); PO2 Arterial 139 mmHg (80-100)
[2022-12-24] MEDS: Norepinephrine 16MCG/ML BAGD5W 4,000 MCG/250 ML BAG IV SCH ×5 (00:45→22:46)
[2022-12-24] MEDS: ceFAZolin 2 GM in NS PREMIX 2 GM/100 ML BAG IVPB SCH ×3 (01:08→22:14)
[2022-12-24] MEDS: Chlorhexidine MOUTHWASH 0.12% 15 ML UDC SWISH SPIT SCH ×6 (01:16→20:30)
[2022-12-24] MEDS: Propofol 10 mg/ml 100 ML BTL 1,000 MG/100 ML BTL IV SCH ×3 (01:51→19:16)
[2022-12-24] MEDS: Pantoprazole 80 mg in NS BAG 80 MG/250 ML BAG IV SCH (04:41)
[2022-12-24 04:52] LABS: Hematocrit 18 % (42-52); Mean Corpuscular HGB Conc 33 g/dL (31-36); Mean Corpuscular Hemoglobin 30 pg (27-31); Mean Corpuscular Volume 91 fL (80-94); Mean Platelet Volume 10.8 fL (7.4-10.4); Platelet Count 33 10^3/uL (150-450); Red Blood Count 2.01 10^6 /uL (4.18-5.48); Red Cell Distribution Width 16 % (10-15)
[2022-12-24 04:57] LABS: INR 1.47 (0.88-1.18)
[2022-12-24 05:20] LABS: Hematocrit 18 % (42-52); Hemoglobin 6.1 g/dL (14.0-18.0); Mean Corpuscular HGB Conc 33 g/dL (31-36); Mean Corpuscular Hemoglobin 31 pg (27-31); Mean Corpuscular Volume 92 fL (80-94); Mean Platelet Volume 11.2 fL (7.4-10.4); Platelet Count 35 10^3/uL (150-450); Red Blood Count 1.99 10^6 /uL (4.18-5.48); Red Cell Distribution Width 16 % (10-15); White Blood Count 10.2 10^3/uL (3.5-10.8)
[2022-12-24 05:21] LABS: ABS Lymphocytes 0.8 10^3/ul (1.0-4.8); ABS Monocytes 0.2 10^3/ul (0-0.8); ABS Neutrophils 9.2 10^3/ul (1.5-7.7); Eosinophil % 0.3 %; Lymphocyte % 7.7 %; Nucleated Red Blood Cells % 0.3
[2022-12-24] MEDS ORDERED: Vancomycin Random Level NOTE FOLLOW UP ONE (06:00)
[2022-12-24 06:02] LABS: AST 27 U/L (13-39); Albumin 2.8 g/dL (3.2-5.2); Albumin/Globulin Ratio 1.8 (1-3); Alkaline Phosphatase 146 U/L (35-149); Blood Urea Nitrogen 93 mg/dL (6-24); CO2 Carbon Dioxide 23 mmol/L (22-32); Calcium 7.1 mg/dL (8.6-10.3); Globulin 1.6 g/dL (2-4); Glucose 105 mg/dL (70-100); Total Protein 4.4 g/dL (6.4-8.9); eGFR CKD-EPI 34.6 (>60)
[2022-12-24 06:05] LABS: ALT < 3 U/L (7-52); Anion Gap 6 mmol/L (2-11); Chloride 117 mmol/L (101-111); Sodium 146 mmol/L (135-145)
[2022-12-24 08:01] LABS: Anisocytosis 1+; Basophilic Stippling 1+; Polychromasia 1+
[2022-12-24 08:02] LABS: ABS Lymphocytes 0.8 10^3/ul (1.0-4.8); ABS Monocytes 0.3 10^3/ul (0-0.8); ABS Neutrophils 10.9 10^3/ul (1.5-7.7); Eosinophil % 0.4 %; Lymphocyte % 6.7 %; Nucleated Red Blood Cells % 0.1
[2022-12-24] MEDS: Albumin Human 25% 25 GM/100 ML BTL IV SCH ×5 (08:10→21:16)
[2022-12-24 08:14] LABS: Vancomycin Random 12.7 mcg/mL
[2022-12-24] MEDS: Carboxymethylcellulos 1% OPTH 1 AMP BOTH EYES SCH (08:17)
[2022-12-24 09:40] LABS: ABS Monocytes 0.2 10^3/ul (0-0.8); Eosinophil % 0.2 %; Hematocrit 23 % (42-52); Hemoglobin 7.5 g/dL (14.0-18.0); Lymphocyte % 7.9 %; Mean Corpuscular HGB Conc 33 g/dL (31-36); Mean Corpuscular Hemoglobin 30 pg (27-31); Mean Corpuscular Volume 91 fL (80-94); Mean Platelet Volume 10.7 fL (7.4-10.4); Nucleated Red Blood Cells % 0.2; Platelet Count 31 10^3/uL (150-450); Red Blood Count 2.49 10^6 /uL (4.18-5.48); Red Cell Distribution Width 16 % (10-15); White Blood Count 12.2 10^3/uL (3.5-10.8)
[2022-12-24] MEDS ORDERED: Albumin Human 25% 25 GM/100 ML IV ONE (09:45)
[2022-12-24] MEDS: Pantoprazole VIAL 40 MG VIAL IV SCH ×2 (09:54→20:29)
[2022-12-24] MEDS ORDERED: Vancomycin 1,250 MG in NS 0.9% 250 ml 250 ML IVPB ONE (10:00)
[2022-12-24] MEDS ORDERED: Naloxone 0.4 mg VIAL 0.4 mg/ml 1 ml VIAL ONE (12:44)
[2022-12-24] MEDS ORDERED: fentaNYL 100 mcg/2 ml 50 MCG/ML VIAL ONE (12:44)
[2022-12-24] MEDS ORDERED: Midazolam 5 mg/5 ml VIAL 1 mg/ml 5 ml VIAL (5 mg) ONE (12:44)
[2022-12-24] MEDS ORDERED: Flumazenil 0.5 mg/5 ml 0.1 MG/ML 5 ml VIAL ONE (12:44)
[2022-12-24] MEDS ORDERED: Propofol 10 MG/ML 20 ML BTL ONE (13:13)
[2022-12-24] MEDS ORDERED: Propofol 10 MG/ML 20 ML BTL IV PUSH ONE (13:18)
[2022-12-24] MEDS: fentaNYL INFUSION 50 mcg/mL VL 2,500 MCG/50 ML VIAL IV SCH (13:30)
[2022-12-24 15:08] LABS: B. burgdorferi PCR Negative (Negative); B. garinii/B. afzellii PCR Negative (Negative); Lyme Disease Source SYNOVIAL FLUID
[2022-12-24 17:18] LABS: ABS Lymphocytes 0.7 10^3/ul (1.0-4.8); ABS Monocytes 0.2 10^3/ul (0-0.8); ABS Neutrophils 12.3 10^3/ul (1.5-7.7); ABS Nucleated RBC 0.2 10^3/ul; Eosinophil % 0.3 %; Hematocrit 20 % (42-52); Hemoglobin 6.8 g/dL (14.0-18.0); Lymphocyte % 5.4 %; Mean Corpuscular HGB Conc 34 g/dL (31-36); Mean Corpuscular Hemoglobin 30 pg (27-31); Mean Corpuscular Volume 89 fL (80-94); Mean Platelet Volume 9.5 fL (7.4-10.4); Nucleated Red Blood Cells % 1.6; Platelet Count 33 10^3/uL (150-450); Red Blood Count 2.28 10^6 /uL (4.18-5.48); Red Cell Distribution Width 16 % (10-15); White Blood Count 13.3 10^3/uL (3.5-10.8)
[2022-12-24] MEDS: Acetaminophen IV 1 GM/100ML 1,000 MG/100 ML BAG IV PRN (20:27)
[2022-12-24] MEDS: Erythromycin OPTH OINT APPLIC OINT LEFT EYE SCH (20:47)
[2022-12-24 23:09] LABS: Hematocrit 23 % (42-52); Hemoglobin 7.5 g/dL (14.0-18.0); Mean Corpuscular HGB Conc 33 g/dL (31-36); Mean Corpuscular Hemoglobin 30 pg (27-31); Mean Corpuscular Volume 89 fL (80-94); Mean Platelet Volume 10.2 fL (7.4-10.4); Platelet Count 32 10^3/uL (150-450); Red Blood Count 2.54 10^6 /uL (4.18-5.48); Red Cell Distribution Width 16 % (10-15); White Blood Count 11.3 10^3/uL (3.5-10.8)
[2022-12-25 01:00] LABS: ABS Lymphocytes 0.3 10^3/ul (1.0-4.8); ABS Monocytes 0.2 10^3/ul (0-0.8); ABS Neutrophils 10.7 10^3/ul (1.5-7.7); Eosinophil % 0.2 %; Lymphocyte % 3.1 %; Nucleated Red Blood Cells % 0.3
[2022-12-25] MEDS: Chlorhexidine MOUTHWASH 0.12% 15 ML UDC SWISH SPIT SCH ×6 (01:16→20:22)
[2022-12-25] MEDS: Norepinephrine 16MCG/ML BAGD5W 4,000 MCG/250 ML BAG IV SCH ×3 (01:47→18:41)
[2022-12-25] MEDS: Propofol 10 mg/ml 100 ML BTL 1,000 MG/100 ML BTL IV SCH ×3 (03:38→16:27)
[2022-12-25] MEDS ORDERED: Vancomycin Random Level NOTE FOLLOW UP ONE (06:00)
[2022-12-25 06:13] LABS: ALT < 3 U/L (7-52); AST 27 U/L (13-39); Albumin 3.3 g/dL (3.2-5.2); Albumin/Globulin Ratio 1.9 (1-3); Alkaline Phosphatase 313 U/L (35-149); Anion Gap 9 mmol/L (2-11); Blood Urea Nitrogen 81 mg/dL (6-24); CO2 Carbon Dioxide 21 mmol/L (22-32); Calcium 7.7 mg/dL (8.6-10.3); Chloride 119 mmol/L (101-111); Creatinine, Serum 1.95 mg/dL (0.67-1.17); Globulin 1.7 g/dL (2-4); Glucose 106 mg/dL (70-100); Potassium 3.5 mmol/L (3.5-5.0); Sodium 149 mmol/L (135-145); Vancomycin Random 16.4 mcg/mL; eGFR CKD-EPI 35.7 (>60)
[2022-12-25 07:09] LABS: INR 1.46 (0.88-1.18)
[2022-12-25 07:28] LABS: Hematocrit 25 % (42-52); Hemoglobin 8.3 g/dL (14.0-18.0); Mean Corpuscular HGB Conc 34 g/dL (31-36); Mean Corpuscular Hemoglobin 30 pg (27-31); Mean Corpuscular Volume 89 fL (80-94); Mean Platelet Volume 11.1 fL (7.4-10.4); Platelet Count 35 10^3/uL (150-450); Red Blood Count 2.79 10^6 /uL (4.18-5.48); Red Cell Distribution Width 16 % (10-15); White Blood Count 12.3 10^3/uL (3.5-10.8)
[2022-12-25 07:39] LABS: Acanthocytes 1+; Hypochromasia 2+; Microcytosis 1+; Polychromasia 2+
[2022-12-25 07:40] LABS: Anisocytosis 1+; Basophilic Stippling 1+; Stomatocytes 1+; Target Cells 2+; Toxic Granulation 2+
[2022-12-25 07:42] LABS: ABS Lymphocytes 0.4 10^3/ul (1.0-4.8); ABS Monocytes 0.2 10^3/ul (0-0.8); ABS Neutrophils 11.6 10^3/ul (1.5-7.7); Eosinophil % 0.1 %; Lymphocyte % 3.5 %; Nucleated Red Blood Cells % 0.4
[2022-12-25] MEDS: Carboxymethylcellulos 1% OPTH 1 AMP BOTH EYES SCH (08:44)
[2022-12-25] MEDS: Albumin Human 25% 25 GM/100 ML BTL IV SCH ×6 (08:45→21:58)
[2022-12-25] MEDS: Pantoprazole VIAL 40 MG VIAL IV SCH ×2 (08:46→20:19)
[2022-12-25 10:30] LABS: Hematocrit 24 % (42-52); Mean Corpuscular HGB Conc 33 g/dL (31-36); Mean Corpuscular Hemoglobin 29 pg (27-31); Mean Corpuscular Volume 88 fL (80-94); Mean Platelet Volume 10.3 fL (7.4-10.4); Platelet Count 38 10^3/uL (150-450); Red Blood Count 2.75 10^6 /uL (4.18-5.48); Red Cell Distribution Width 16 % (10-15); White Blood Count 13.4 10^3/uL (3.5-10.8)
[2022-12-25 11:00] LABS: Acanthocytes 2+; Anisocytosis 1+; Basophilic Stippling 1+; Burr Cells 1+; Hypochromasia 1+; Microcytosis 1+; Polychromasia 2+; Schistocytes 1+; Target Cells 1+
[2022-12-25 11:02] LABS: ABS Lymphocytes 0.5 10^3/ul (1.0-4.8); ABS Monocytes 0.2 10^3/ul (0-0.8); ABS Neutrophils 12.6 10^3/ul (1.5-7.7); Eosinophil % 0.2 %; Lymphocyte % 3.5 %; Nucleated Red Blood Cells % 0.2
[2022-12-25] MEDS: ceFAZolin 2 GM in NS PREMIX 2 GM/100 ML BAG IVPB SCH ×2 (11:08→22:40)
[2022-12-25 13:39] LABS: Magnesium 2.6 mg/dL (1.9-2.7)
[2022-12-25] MEDS ORDERED: Vancomycin 1000 MG in NS 0.9% 250 ML IVPB ONE (14:00)
[2022-12-25 14:27] LABS: Corrected Retic Count 0.9 % (0.5-1.5); Hematocrit for Retic CNT 24 % (42-52); Immature Retic Fraction 0.74
[2022-12-25] MEDS: Acetaminophen IV 1 GM/100ML 1,000 MG/100 ML BAG IV PRN ×2 (14:44→23:22)
[2022-12-25] MEDS ORDERED: Iodixanol (CONTRAST) 320 MG/ML 100 ML SDV IV ONE (15:17)
[2022-12-25] MEDS: fentaNYL INFUSION 50 mcg/mL VL 2,500 MCG/50 ML VIAL IV SCH (16:19)
[2022-12-25 17:39] LABS: LDH 272 U/L (140-271)
[2022-12-25] MEDS: Erythromycin OPTH OINT APPLIC OINT LEFT EYE SCH (20:43)
[2022-12-25] MEDS: fentaNYL 100 mcg/2 ml 50 MCG/ML VIAL IV SLOW PU PRN (21:33)
[2022-12-25 22:02] LABS: ABS Lymphocytes 0.4 10^3/ul (1.0-4.8); ABS Monocytes 0.3 10^3/ul (0-0.8); ABS Neutrophils 12.4 10^3/ul (1.5-7.7); Eosinophil % 0.4 %; Hematocrit 24 % (42-52); Mean Corpuscular HGB Conc 33 g/dL (31-36); Mean Corpuscular Hemoglobin 30 pg (27-31); Mean Corpuscular Volume 91 fL (80-94); Mean Platelet Volume 9.9 fL (7.4-10.4); Nucleated Red Blood Cells % 0.2; Platelet Count 40 10^3/uL (150-450); Red Blood Count 2.69 10^6 /uL (4.18-5.48); Red Cell Distribution Width 16 % (10-15); White Blood Count 13.1 10^3/uL (3.5-10.8)
[2022-12-26] MEDS: Norepinephrine 16MCG/ML BAGD5W 4,000 MCG/250 ML BAG IV SCH ×3 (00:03→21:40)
[2022-12-26] MEDS: Chlorhexidine MOUTHWASH 0.12% 15 ML UDC SWISH SPIT SCH ×6 (00:55→19:54)
[2022-12-26] MEDS: Propofol 10 mg/ml 100 ML BTL 1,000 MG/100 ML BTL IV SCH ×3 (01:09→17:00)
[2022-12-26] MEDS: fentaNYL 100 mcg/2 ml 50 MCG/ML VIAL IV SLOW PU PRN ×2 (02:05→13:22)
[2022-12-26 04:53] LABS: ABS Eosinophils 0.1 10^3/ul (0-0.6); ABS Lymphocytes 0.4 10^3/ul (1.0-4.8); ABS Monocytes 0.3 10^3/ul (0-0.8); Eosinophil % 0.4 %; Hematocrit 25 % (42-52); Lymphocyte % 3.3 %; Mean Corpuscular HGB Conc 32 g/dL (31-36); Mean Corpuscular Hemoglobin 28 pg (27-31); Mean Corpuscular Volume 90 fL (80-94); Mean Platelet Volume 10.6 fL (7.4-10.4); Nucleated Red Blood Cells % 0.2; Platelet Count 46 10^3/uL (150-450); Red Blood Count 2.82 10^6 /uL (4.18-5.48); Red Cell Distribution Width 16 % (10-15); White Blood Count 12.7 10^3/uL (3.5-10.8)
[2022-12-26 05:02] LABS: ALT 3 U/L (7-52); AST 41 U/L (13-39); Albumin 3.5 g/dL (3.2-5.2); Albumin/Globulin Ratio 1.9 (1-3); Alkaline Phosphatase 352 U/L (35-149); Blood Urea Nitrogen 75 mg/dL (6-24); CO2 Carbon Dioxide 24 mmol/L (22-32); Calcium 7.9 mg/dL (8.6-10.3); Creatinine, Serum 2.07 mg/dL (0.67-1.17); Globulin 1.8 g/dL (2-4); Glucose 131 mg/dL (70-100); INR 1.55 (0.88-1.18); Magnesium 2.6 mg/dL (1.9-2.7); Potassium 3.8 mmol/L (3.5-5.0); Total Protein 5.3 g/dL (6.4-8.9); Vancomycin Random 11.1 mcg/mL; eGFR CKD-EPI 33.2 (>60)
[2022-12-26 05:05] LABS: Anion Gap 7 mmol/L (2-11); Chloride 118 mmol/L (101-111); Sodium 149 mmol/L (135-145)
[2022-12-26] MEDS ORDERED: Vancomycin Random Level NOTE FOLLOW UP ONE (06:00)
[2022-12-26] MEDS: Albumin Human 25% 25 GM/100 ML BTL IV SCH ×2 (09:20→10:25)
[2022-12-26] MEDS: Carboxymethylcellulos 1% OPTH 1 AMP BOTH EYES SCH (09:28)
[2022-12-26] MEDS: Pantoprazole VIAL 40 MG VIAL IV SCH ×2 (09:28→19:56)
[2022-12-26] MEDS ORDERED: Ziprasidone IM 20 mg VIAL 1 ml VIAL IM PRN (09:45)
[2022-12-26] MEDS ORDERED: Furosemide 40 mg/4 ml IV VIAL IV ONE (09:56)
[2022-12-26] MEDS: Heparin 5000 UNITS/ML 1 mL VIAL SUBCUT SCH ×2 (10:26→19:55)
[2022-12-26] MEDS: ceFAZolin 2 GM in NS PREMIX 2 GM/100 ML BAG IVPB SCH (11:10)
[2022-12-26 14:05] LABS: % Iron Saturation 19 % (15-55); .Transferrin < 75 mg/dL (203-362); Iron < 20 ug/dL (50-212); Total Iron Binding Capacity 105 mcg/dL (250-450); Unsaturated Iron Binding 85 ug/dL
[2022-12-26] MEDS: Acetaminophen IV 1 GM/100ML 1,000 MG/100 ML BAG IV PRN ×2 (14:22→18:23)
[2022-12-26 14:27] LABS: Ferritin 197.7 ng/mL (24-336)
[2022-12-26 14:30] LABS: Folate 17.09 ng/mL (5.90-24.80)
[2022-12-26 14:31] LABS: Vitamin B12 > 1450 pg/mL (180-914)
[2022-12-26] MEDS ORDERED: Albumin Human 25% 50 GM/200 ML BTL IV SCH (17:00)
[2022-12-26] MEDS: Albumin Human 25% 25 GM/100 ML IV SCH ×4 (17:12→23:11)
[2022-12-26] MEDS: fentaNYL INFUSION 50 mcg/mL VL 2,500 MCG/50 ML VIAL IV SCH (17:48)
[2022-12-26] MEDS: Erythromycin OPTH OINT APPLIC OINT LEFT EYE SCH (19:55)
[2022-12-26 21:23] LABS: HIT ELISA 0.072 OD (<0.400); Heparin PF4 Antibody Interp Negative (Negative)
[2022-12-27] MEDS: fentaNYL 100 mcg/2 ml 50 MCG/ML VIAL IV SLOW PU PRN ×2 (00:24→23:46)
[2022-12-27 00:26] LABS: Calcium 8.4 mg/dL (8.6-10.3); Creatinine, Serum 2.4 mg/dL (0.67-1.17); Potassium 3.5 mmol/L (3.5-5.0); eGFR CKD-EPI 27.8 (>60)
[2022-12-27] MEDS: ceFAZolin 2 GM in NS PREMIX 2 GM/100 ML BAG IVPB SCH ×2 (00:31→11:51)
[2022-12-27] MEDS: Chlorhexidine MOUTHWASH 0.12% 15 ML UDC SWISH SPIT SCH ×6 (01:45→19:55)
[2022-12-27 04:42] LABS: Hematocrit 24 % (42-52); Hemoglobin 7.6 g/dL (14.0-18.0); Mean Corpuscular HGB Conc 32 g/dL (31-36); Mean Corpuscular Hemoglobin 29 pg (27-31); Mean Corpuscular Volume 90 fL (80-94); Mean Platelet Volume 10.2 fL (7.4-10.4); Platelet Count 48 10^3/uL (150-450); Red Blood Count 2.64 10^6 /uL (4.18-5.48); Red Cell Distribution Width 16 % (10-15); White Blood Count 9.7 10^3/uL (3.5-10.8)
[2022-12-27] MEDS: Propofol 10 mg/ml 100 ML BTL 1,000 MG/100 ML BTL IV SCH ×2 (05:29→15:35)
[2022-12-27 05:31] LABS: Albumin 3.5 g/dL (3.2-5.2); Albumin/Globulin Ratio 2.1 (1-3); Calcium 8.3 mg/dL (8.6-10.3); Creatinine, Serum 2.27 mg/dL (0.67-1.17); Globulin 1.7 g/dL (2-4); Magnesium 2.4 mg/dL (1.9-2.7); Potassium 3.4 mmol/L (3.5-5.0); Total Bilirubin 1.3 mg/dL (0.2-1.0); Total Protein 5.2 g/dL (6.4-8.9); eGFR CKD-EPI 29.7 (>60)
[2022-12-27] MEDS: Acetaminophen IV 1 GM/100ML 1,000 MG/100 ML BAG IV PRN ×2 (05:31→16:05)
[2022-12-27] MEDS ORDERED: KCL 20 MEQ/100 ML IVPREMIX 20 MEQ/100 ML BAG IV ONE (05:46)
[2022-12-27] MEDS ORDERED: Potassium Chloride LIQUID 20 MEQ/15 ML LIQUID PEG TUBE ONE (05:46)
[2022-12-27 06:21] LABS: ABS Eosinophils 0.1 10^3/ul (0-0.6); ABS Lymphocytes 0.4 10^3/ul (1.0-4.8); ABS Monocytes 0.3 10^3/ul (0-0.8); Eosinophil % 0.7 %; Lymphocyte % 3.7 %; Nucleated Red Blood Cells % 0.3
[2022-12-27] MEDS ORDERED: Furosemide 40 mg/4 ml IV VIAL IV ONE ×2 (09:21→16:28)
[2022-12-27] MEDS: Albumin Human 25% 25 GM/100 ML BTL IV SCH ×2 (10:01→20:09)
[2022-12-27] MEDS: Heparin 5000 UNITS/ML 1 mL VIAL SUBCUT SCH ×2 (10:02→19:54)
[2022-12-27] MEDS: KCL 20 MEQ/100 ML IVPREMIX 20 MEQ/100 ML BAG IV SCH ×2 (10:02→12:02)
[2022-12-27] MEDS: Pantoprazole VIAL 40 MG VIAL IV SCH ×2 (10:03→19:55)
[2022-12-27] MEDS: Carboxymethylcellulos 1% OPTH 1 AMP BOTH EYES SCH (10:03)
[2022-12-27] MEDS: Ziprasidone IM 20 mg VIAL 1 ml VIAL IM PRN ×2 (12:55→22:35)
[2022-12-27 16:18] LABS: Calcium 8.4 mg/dL (8.6-10.3); Creatinine, Serum 2.49 mg/dL (0.67-1.17); Potassium 4.3 mmol/L (3.5-5.0); eGFR CKD-EPI 26.6 (>60)
[2022-12-27] MEDS: fentaNYL INFUSION 50 mcg/mL VL 2,500 MCG/50 ML VIAL IV SCH (18:00)
[2022-12-27] MEDS: Erythromycin OPTH OINT APPLIC OINT LEFT EYE SCH (20:16)
[2022-12-28] MEDS: ceFAZolin 2 GM in NS PREMIX 2 GM/100 ML BAG IVPB SCH ×3 (00:44→22:47)
[2022-12-28] MEDS: Chlorhexidine MOUTHWASH 0.12% 15 ML UDC SWISH SPIT SCH ×6 (00:44→20:25)
[2022-12-28] MEDS: Acetaminophen IV 1 GM/100ML 1,000 MG/100 ML BAG IV PRN ×2 (02:30→15:44)
[2022-12-28] MEDS: Propofol 10 mg/ml 100 ML BTL 1,000 MG/100 ML BTL IV SCH ×2 (03:04→09:51)
[2022-12-28 04:22] LABS: Hematocrit 23 % (42-52); Hemoglobin 7.4 g/dL (14.0-18.0); Mean Corpuscular HGB Conc 33 g/dL (31-36); Mean Corpuscular Hemoglobin 29 pg (27-31); Mean Corpuscular Volume 90 fL (80-94); Mean Platelet Volume 10.9 fL (7.4-10.4); Platelet Count 65 10^3/uL (150-450); Red Blood Count 2.54 10^6 /uL (4.18-5.48); Red Cell Distribution Width 17 % (10-15); White Blood Count 9.1 10^3/uL (3.5-10.8)
[2022-12-28 05:00] LABS: ABS Eosinophils 0.1 10^3/ul (0-0.6); ABS Lymphocytes 0.4 10^3/ul (1.0-4.8); ABS Monocytes 0.3 10^3/ul (0-0.8); ABS Neutrophils 8.3 10^3/ul (1.5-7.7); AST 32 U/L (13-39); Albumin 3.1 g/dL (3.2-5.2); Albumin/Globulin Ratio 1.6 (1-3); Alkaline Phosphatase 246 U/L (35-149); Blood Urea Nitrogen 90 mg/dL (6-24); CO2 Carbon Dioxide 25 mmol/L (22-32); Calcium 8.4 mg/dL (8.6-10.3); Creatinine, Serum 2.66 mg/dL (0.67-1.17); Eosinophil % 0.6 %; Glucose 123 mg/dL (70-100); Lymphocyte % 3.9 %; Magnesium 2.2 mg/dL (1.9-2.7); Nucleated Red Blood Cells % 0.1; Potassium 3.7 mmol/L (3.5-5.0); Total Protein 5.1 g/dL (6.4-8.9); eGFR CKD-EPI 24.6 (>60)
[2022-12-28 05:05] LABS: ALT < 3 U/L (7-52); Anion Gap 7 mmol/L (2-11); Chloride 120 mmol/L (101-111); Sodium 152 mmol/L (135-145)
[2022-12-28] MEDS: Norepinephrine 16MCG/ML BAGD5W 4,000 MCG/250 ML BAG IV SCH (07:36)
[2022-12-28] MEDS: KCL 20 MEQ/100 ML IVPREMIX 20 MEQ/100 ML BAG IV SCH ×2 (07:49→10:13)
[2022-12-28] MEDS: fentaNYL INFUSION 50 mcg/mL VL 2,500 MCG/50 ML VIAL IV SCH (09:52)
[2022-12-28] MEDS: Heparin 5000 UNITS/ML 1 mL VIAL SUBCUT SCH ×2 (10:11→20:26)
[2022-12-28] MEDS: Pantoprazole VIAL 40 MG VIAL IV SCH ×2 (10:11→20:24)
[2022-12-28] MEDS: Albumin Human 25% 25 GM/100 ML BTL IV SCH ×2 (10:17→20:27)
[2022-12-28] MEDS: Carboxymethylcellulos 1% OPTH 1 AMP BOTH EYES SCH (10:33)
[2022-12-28 16:57] LABS: Calcium 8.6 mg/dL (8.6-10.3); Creatinine, Serum 2.66 mg/dL (0.67-1.17); Potassium 4.2 mmol/L (3.5-5.0); eGFR CKD-EPI 24.6 (>60)
[2022-12-28 17:52] LABS: ADAMTS13 Activity Assay 8 % (>/=70)
[2022-12-28] MEDS: Erythromycin OPTH OINT APPLIC OINT LEFT EYE SCH (20:47)
[2022-12-28] MEDS: Ziprasidone IM 20 mg VIAL 1 ml VIAL IM PRN (21:19)
[2022-12-29] MEDS: Chlorhexidine MOUTHWASH 0.12% 15 ML UDC SWISH SPIT SCH ×6 (01:05→21:06)
[2022-12-29] MEDS: Propofol 10 mg/ml 100 ML BTL 1,000 MG/100 ML BTL IV SCH ×2 (02:17→19:50)
[2022-12-29] MEDS: Acetaminophen IV 1 GM/100ML 1,000 MG/100 ML BAG IV PRN ×2 (02:57→11:54)
[2022-12-29 04:22] LABS: ABS Eosinophils 0.1 10^3/ul (0-0.6); ABS Lymphocytes 0.5 10^3/ul (1.0-4.8); ABS Monocytes 0.3 10^3/ul (0-0.8); ABS Neutrophils 6.8 10^3/ul (1.5-7.7); Eosinophil % 0.8 %; Hematocrit 22 % (42-52); Hemoglobin 7.1 g/dL (14.0-18.0); Lymphocyte % 6.9 %; Mean Corpuscular HGB Conc 33 g/dL (31-36); Mean Corpuscular Hemoglobin 29 pg (27-31); Mean Corpuscular Volume 91 fL (80-94); Mean Platelet Volume 10.4 fL (7.4-10.4); Platelet Count 68 10^3/uL (150-450); Red Blood Count 2.41 10^6 /uL (4.18-5.48); Red Cell Distribution Width 16 % (10-15); White Blood Count 7.8 10^3/uL (3.5-10.8)
[2022-12-29 04:25] LABS: INR 1.47 (0.88-1.18)
[2022-12-29] MEDS: Norepinephrine 16MCG/ML BAGD5W 4,000 MCG/250 ML BAG IV SCH ×4 (04:55→23:32)
[2022-12-29 04:57] LABS: AST 39 U/L (13-39); Albumin 3.1 g/dL (3.2-5.2); Albumin/Globulin Ratio 1.3 (1-3); Alkaline Phosphatase 231 U/L (35-149); Blood Urea Nitrogen 96 mg/dL (6-24); CO2 Carbon Dioxide 28 mmol/L (22-32); Calcium 8.7 mg/dL (8.6-10.3); Creatinine, Serum 2.66 mg/dL (0.67-1.17); Globulin 2.3 g/dL (2-4); Glucose 121 mg/dL (70-100); Magnesium 2.3 mg/dL (1.9-2.7); Potassium 4.1 mmol/L (3.5-5.0); Total Protein 5.4 g/dL (6.4-8.9); eGFR CKD-EPI 24.6 (>60)
[2022-12-29 05:11] LABS: ALT < 3 U/L (7-52); Anion Gap 5 mmol/L (2-11); Chloride 117 mmol/L (101-111); Sodium 150 mmol/L (135-145)
[2022-12-29] MEDS: Pantoprazole VIAL 40 MG VIAL IV SCH ×2 (08:03→21:09)
[2022-12-29] MEDS: Heparin 5000 UNITS/ML 1 mL VIAL SUBCUT SCH ×2 (08:04→21:08)
[2022-12-29] MEDS: Carboxymethylcellulos 1% OPTH 1 AMP BOTH EYES SCH (08:04)
[2022-12-29] MEDS: Albumin Human 25% 25 GM/100 ML BTL IV SCH (08:05)
[2022-12-29] MEDS: fentaNYL INFUSION 50 mcg/mL VL 2,500 MCG/50 ML VIAL IV SCH (10:31)
[2022-12-29] MEDS: ceFAZolin 2 GM in NS PREMIX 2 GM/100 ML BAG IVPB SCH ×2 (10:44→23:08)
[2022-12-29 11:48] LABS: C Reactive Protein 262.56 mg/L (<8.01)
[2022-12-29] MEDS: Erythromycin OPTH OINT APPLIC OINT LEFT EYE SCH (21:09)
[2022-12-30 00:36] LABS: Hematocrit 15 % (42-52); Hemoglobin 4.7 g/dL (14.0-18.0)
[2022-12-30] MEDS: Norepinephrine 16MCG/ML BAGD5W 4,000 MCG/250 ML BAG IV SCH ×5 (01:52→08:44)
[2022-12-30] MEDS: Chlorhexidine MOUTHWASH 0.12% 15 ML UDC SWISH SPIT SCH ×4 (01:53→12:09)
[2022-12-30] MEDS ORDERED: Vasopressin 100 UNITS in D5W 250 ml BAG 245 ML IV SCH (04:15)
[2022-12-30] MEDS ORDERED: VASOPRESSIN IVPREMIX BTL 40 UNIT/100 ML BTL IV SCH (04:15)
[2022-12-30 07:11] LABS: ABS Basophils 0.1 10^3/ul (0-0.2); ABS Monocytes 0.4 10^3/ul (0-0.8); ABS Neutrophils 6.1 10^3/ul (1.5-7.7); Eosinophil % 0.5 %; Hematocrit 20 % (42-52); Hemoglobin 6.5 g/dL (14.0-18.0); Lymphocyte % 12.8 %; Mean Corpuscular HGB Conc 32 g/dL (31-36); Mean Corpuscular Hemoglobin 29 pg (27-31); Mean Corpuscular Volume 89 fL (80-94); Mean Platelet Volume 11.2 fL (7.4-10.4); Nucleated Red Blood Cells % 0.2; Platelet Count 76 10^3/uL (150-450); Red Blood Count 2.27 10^6 /uL (4.18-5.48); Red Cell Distribution Width 16 % (10-15); White Blood Count 7.6 10^3/uL (3.5-10.8)
[2022-12-30] MEDS: Heparin 5000 UNITS/ML 1 mL VIAL SUBCUT SCH (07:42)
[2022-12-30] MEDS: Pantoprazole VIAL 40 MG VIAL IV SCH (07:42)
[2022-12-30] MEDS: Carboxymethylcellulos 1% OPTH 1 AMP BOTH EYES SCH (07:42)
[2022-12-30 08:11] LABS: AST 33 U/L (13-39); Albumin 2.1 g/dL (3.2-5.2); Albumin/Globulin Ratio 0.8 (1-3); Alkaline Phosphatase 175 U/L (35-149); Blood Urea Nitrogen 129 mg/dL (6-24); CO2 Carbon Dioxide 24 mmol/L (22-32); Calcium 7.8 mg/dL (8.6-10.3); Creatinine, Serum 2.87 mg/dL (0.67-1.17); Globulin 2.6 g/dL (2-4); Glucose 157 mg/dL (70-100); Magnesium 2.2 mg/dL (1.9-2.7); Phosphorus 5.8 mg/dL (2.5-5.0); Total Protein 4.7 g/dL (6.4-8.9); eGFR CKD-EPI 22.4 (>60)
[2022-12-30 08:13] LABS: ALT < 3 U/L (7-52); Anion Gap 8 mmol/L (2-11); Chloride 115 mmol/L (101-111); Potassium 5.1 mmol/L (3.5-5.0); Sodium 147 mmol/L (135-145)
[2022-12-30] MEDS: Propofol 10 mg/ml 100 ML BTL 1,000 MG/100 ML BTL IV SCH (08:44)
[2022-12-30] MEDS ORDERED: Phenylephrine IV 10 MG/ML 1 ml VIAL ONE (08:54)
[2022-12-30] MEDS ORDERED: Albumin Human 5% 12.5 GM/250 ML BTL IV ONE ×2 (08:56→08:59)
[2022-12-30] MEDS ORDERED: Phenylephrine IV 50 MG in NS 0.9% 250 ml 245 ML IV SCH (09:00)
[2022-12-30] MEDS ORDERED: Morphine 2 MG/ML SYRINGE IV PRN (10:12)
[2022-12-30] MEDS ORDERED: Ondansetron 4 mg VIAL 2 MG/ML 2 ml VIAL IV PRN (10:12)
[2022-12-30] MEDS ORDERED: Ondansetron ODT 4 mg TAB 4 MG TAB SL PRN (10:12)
[2022-12-30] MEDS ORDERED: Haloperidol 5 mg/ml SDV IV/IM 5 MG/ML AMP IV SLOW PU PRN (10:12)
[2022-12-30] MEDS ORDERED: Lorazepam PYXIS KEY PRN (10:15)
[2022-12-30] MEDS ORDERED: LORazepam 2 mg VIAL 1 ml IV PUSH PRN (10:15)
[2022-12-30] MEDS ORDERED: Morphine 4 MG/ML VIAL (1 ml) ONE (10:17)
[2022-12-30] MEDS ORDERED: LORazepam 2 mg VIAL 1 ml ONE (10:17)
[2022-12-30] MEDS ORDERED: Lorazepam PYXIS KEY ONE (10:17)
[2022-12-30 10:30] LABS: Hematocrit 26 % (42-52); Hemoglobin 8.4 g/dL (14.0-18.0); Mean Corpuscular HGB Conc 33 g/dL (31-36); Mean Corpuscular Hemoglobin 30 pg (27-31); Mean Corpuscular Volume 90 fL (80-94); Mean Platelet Volume 11.1 fL (7.4-10.4); Platelet Count 45 10^3/uL (150-450); Red Blood Count 2.84 10^6 /uL (4.18-5.48); Red Cell Distribution Width 16 % (10-15)
[2022-12-30 10:31] VITALS: BP 90/56
[2022-12-30] MEDS ORDERED: Scopolamine 1 mg/72hr PATCH TRANSDERM SCH (11:00)
[2022-12-30 11:25] LABS: ABS Lymphocytes 0.7 10^3/ul (1.0-4.8); ABS Monocytes 0.4 10^3/ul (0-0.8); ABS Neutrophils 4.9 10^3/ul (1.5-7.7); Eosinophil % 0.6 %; Lymphocyte % 11.1 %; Nucleated Red Blood Cells % 0.3
== END 2022-12-30 10:54 | disposition expired | DRG 987 ==
LOC: ED 13:54 → EDHOLD 19:44 → SUATTDRO 19:44 → EDHOLD 12-18 13:39 → SSU 12-18 16:14 → ICU 12-19 08:33
PROVIDERS: ADMIT Hospitalist; ATTEND Internal Medicine
PROC: O.GIEGD (2022-12-18 15:10)